=== PATIENT | male | born 1940 | race Two or more races ===

== ENCOUNTER 2017-12-23 12:37 | Emergency (ER) | payer OTHER ==
[2017-12-23 13:36] LABS: ADD MAN DIFF? NO
[2017-12-23 13:41] LABS: BASO % 1 % (0-3); EOS # 0.1 x10^3/uL (0.0-0.7); EOS % 3 % (0-3); HEMATOCRIT 41.9 % (39.0-53.0); HEMOGLOBIN 14.2 g/dL (13.0-17.5); LYMPH # 1.4 x10^3/uL (1.0-4.8); LYMPH % 26 % (24-48); MEAN CORPUSCULAR HEMOGLOBIN 30 pg (25-35); MEAN CORPUSCULAR HGB CONC 34 g/dL (31-37); MEAN CORPUSCULAR VOLUME 87 fL (79-100); MONO # 0.7 x10^3/uL (0.0-1.1); MONO % 14 % (0-9); NEUT # 3.1 x10^3uL (1.8-7.7); NEUT % 58 % (31-73); PLATELET COUNT 113 x10^3/uL (140-400); RED BLOOD COUNT 4.83 x10^6/uL (4.30-5.70); RED CELL DISTRIBUTION WIDTH 14.5 % (11.5-14.5); WHITE BLOOD COUNT 5.4 x10^3/uL (4.0-11.0)
[2017-12-23] MEDS: IV NORMAL SALINE 1000ML BAG 1,000 ML IV (13:41)
[2017-12-23] MEDS: fentaNYL PF VIAL 100 MCG/2 ML VIAL IV (13:43)
[2017-12-23] MEDS: ONDANSETRON PF 4 MG/2 ML VIAL. IV (13:43)
[2017-12-23 13:51] LABS: ANION GAP 7 (6-14); BLOOD UREA NITROGEN 6 mg/dL (8-26); BUN/CREATININE RATIO 5 (6-20); CARBON DIOXIDE 28 mmol/L (21-32); CHLORIDE 103 mmol/L (98-107); CREATININE 1.2 mg/dL (0.7-1.3); FECAL OB PT NEGATIVE (NEG); GLUCOSE 146 mg/dL (70-99); NEG OBC FOB NEG; POS OBC FOB POS; POTASSIUM 3.8 mmol/L (3.5-5.1); SODIUM 138 mmol/L (136-145)
[2017-12-23 13:53] LABS: BILIRUBIN,URINE NEGATIVE (NEG); CLARITY,URINE CLEAR; COLOR,URINE YELLOW; GLUCOSE,URINE NEGATIVE (NEG); NITRITE,URINE NEGATIVE (NEG); PH,URINE 7.5; PROTEIN,URINE NEGATIVE (NEG-TRACE); UROBILINOGEN,URINE 0.2 mg/dL (0.2 mg/dL)
[2017-12-23 13:58] LABS: ALBUMIN 3.5 g/dL (3.4-5.0); ALBUMIN/GLOBULIN RATIO 0.8 (1.0-1.7); ALK PHOS 71 U/L (46-116); ALT (SGPT) 47 U/L (16-63); AST (SGOT) 33 U/L (15-37); TOTAL BILIRUBIN 0.6 mg/dL (0.2-1.0); TOTAL PROTEIN 7.7 g/dL (6.4-8.2)
[2017-12-23] MEDS ORDERED: CONTRAST GIVEN MC (14:00)
[2017-12-23 14:02] LABS: RBC,URINE RARE /HPF (0-2)
[2017-12-23 14:03] LABS: BACTERIA,URINE 0 /HPF (0-FEW); SQUAMOUS EPITHELIAL CELL,UR OCC /LPF; WBC,URINE 0 /HPF (0-4)
[2017-12-23] MEDS: IOHEXOL 300 MG/ML 100ML VIAL. IV (14:08)
== END 2017-12-23 15:30 | disposition home or self-care (01) ==
LOC: ER 12:37
DX: R10.30 Lower abdominal pain, unspecified (principal); I10 Essential (primary) hypertension; Z79.899 Other long term (current) drug therapy
CPT/HCPCS: 36415; 74177; 80053; 81001; 82274; 85025; 96374; 96375; 99285; J2405; J3010; J7030; Q9967

== ENCOUNTER 2017-12-26 06:01 | Emergency (ER) | payer OTHER ==
[2017-12-26 06:37] LABS: ADD MAN DIFF? NO
[2017-12-26 06:41] LABS: BASO # 0.1 x10^3/uL (0.0-0.2); BASO % 1 % (0-3); EOS # 0.1 x10^3/uL (0.0-0.7); EOS % 1 % (0-3); HEMATOCRIT 42.7 % (39.0-53.0); HEMOGLOBIN 14.8 g/dL (13.0-17.5); LYMPH # 1.6 x10^3/uL (1.0-4.8); LYMPH % 14 % (24-48); MEAN CORPUSCULAR HEMOGLOBIN 30 pg (25-35); MEAN CORPUSCULAR HGB CONC 35 g/dL (31-37); MEAN CORPUSCULAR VOLUME 85 fL (79-100); MONO # 1.2 x10^3/uL (0.0-1.1); MONO % 11 % (0-9); NEUT # 8.2 x10^3uL (1.8-7.7); NEUT % 74 % (31-73); PLATELET COUNT 115 x10^3/uL (140-400); RED CELL DISTRIBUTION WIDTH 14.5 % (11.5-14.5); WHITE BLOOD COUNT 11.1 x10^3/uL (4.0-11.0)
[2017-12-26] MEDS: IV NORMAL SALINE 1000ML BAG 1,000 ML IV (06:52)
[2017-12-26] MEDS: fentaNYL PF VIAL 100 MCG/2 ML VIAL IV (06:55)
[2017-12-26 07:02] LABS: ANION GAP 7 (6-14); BLOOD UREA NITROGEN 8 mg/dL (8-26); BUN/CREATININE RATIO 7 (6-20); CALCIUM 8.8 mg/dL (8.5-10.1); CARBON DIOXIDE 29 mmol/L (21-32); CHLORIDE 97 mmol/L (98-107); CREATININE 1.2 mg/dL (0.7-1.3); GLUCOSE 143 mg/dL (70-99); POTASSIUM 3.6 mmol/L (3.5-5.1); SODIUM 133 mmol/L (136-145)
[2017-12-26 07:03] LABS: TROPONINI < 0.017 ng/mL (0.000-0.055)
[2017-12-26 07:06] LABS: ALBUMIN 3.5 g/dL (3.4-5.0); ALBUMIN/GLOBULIN RATIO 0.8 (1.0-1.7); ALK PHOS 76 U/L (46-116); ALT (SGPT) 41 U/L (16-63); AST (SGOT) 27 U/L (15-37); LIPASE 152 U/L (73-393)
[2017-12-26 07:11] LABS: LACTIC ACID 1.2 mmol/L (0.4-2.0)
[2017-12-26 08:01] LABS: BILIRUBIN,URINE NEGATIVE (NEG); CLARITY,URINE CLEAR; COLOR,URINE YELLOW; GLUCOSE,URINE NEGATIVE (NEG); NITRITE,URINE NEGATIVE (NEG); PH,URINE 7.5; PROTEIN,URINE NEGATIVE (NEG-TRACE); UROBILINOGEN,URINE 0.2 mg/dL (0.2 mg/dL)
[2017-12-26 08:25] LABS: BACTERIA,URINE 0 /HPF (0-FEW); RBC,URINE 0 /HPF (0-2); SQUAMOUS EPITHELIAL CELL,UR FEW /LPF; WBC,URINE 0 /HPF (0-4)
== END 2017-12-26 08:56 | disposition home or self-care (01) ==
LOC: ER 06:01
DX: R10.13 Epigastric pain (principal); R11.2 Nausea with vomiting, unspecified; I10 Essential (primary) hypertension
CPT/HCPCS: 36415; 76705; 80053; 81001; 83605; 83690; 84484; 85025; 93005; 96361; 96374; 99285-25; J3010; J7030